=== PATIENT | female | born 1985 | race African-American/Black ===

== ENCOUNTER 2023-12-13 19:20 | Emergency (ER) | payer SELFPAY ==
[~2023-12-13] VITALS: Ht 177.8 cm; Wt 68.6 kg
[2023-12-13 19:29] VITALS: O2SAT 100
[2023-12-13 19:31] VITALS: BP 135/95; PULSE 95; RESP 16; TEMP 98.9; O2SAT 98
[2023-12-13 20:38] LABS: CLARITY URINE CLOUDY (CLEAR); COLOR URINE DARK YELLOW (YELLOW); GLUCOSE URINE NEGATIVE (NEGATIVE); KETONES URINE TRACE (NEGATIVE); LEUKOCYTE ESTERASE URINE 2+ (NEGATIVE); NITRITE URINE POSITIVE (NEGATIVE); OCCULT BLOOD URINE NEGATIVE (NEGATIVE); PH URINE 6.5 (4.5-8.0); PROTEIN URINE TRACE (NEGATIVE); SPECIFIC GRAVITY URINE 1.026 (1.005-1.030)
[2023-12-13 20:50] LABS: BACTERIA URINE 3+; RBC URINE 0-2 /hpf (0-2); SQUAMOUS EPITHELIAL CELL URINE 1+ /lpf (RARE/1+)
== END 2023-12-13 23:51 | disposition left against medical advice (07) ==
LOC: ER 19:20
DX: R10.9 Unspecified abdominal pain (principal); Z53.21 Procedure and treatment not carried out due to patient leaving prior to being seen by health care provider
CPT/HCPCS: 81003; 81025; 86850; 87077; 87186